=== PATIENT | male | born 1985 | race African-American/Black ===

== ENCOUNTER 2018-01-25 19:33 | Emergency (ER) | payer MEDICAID ==
[~2018-01-25] VITALS: Ht 190.5 cm; Wt 83.0 kg
[2018-01-25 23:32] LABS: CHLORIDE 100 mEq/L (98-107)
[2018-01-26 03:45] VITALS: BP 128/77
[2018-01-26] MEDS ORDERED: PENICILLIN G BENZATHINE 2,400,000 UNITS/4ML SYR IM ONE (04:30)
[2018-01-26] MEDS ORDERED: CEFTRIAXONE SODIUM 250 MG/VIAL IM ONE (04:30)
[2018-01-26] MEDS ORDERED: AZITHROMYCIN 500 MG TABLET PO ONE (04:30)
== END 2018-01-26 06:27 | disposition home or self-care (01) ==
LOC: ER 19:33
DX: N48.5 Ulcer of penis (principal); E11.9 Type 2 diabetes mellitus without complications; Z79.4 Long term (current) use of insulin; F17.200 Nicotine dependence, unspecified, uncomplicated; K51.90 Ulcerative colitis, unspecified, without complications
CPT/HCPCS: 36415; 80048; 82962; 96372; 99283; J0561; J0696